=== PATIENT | female | born 1930 | race Caucasian/White ===

== ENCOUNTER 2016-07-03 15:02 | Inpatient (IN) | payer MEDICARE, BC ==
[2016-07-03] MEDS ORDERED: LEVALBUTEROL NEB 1.25 MG/3 ML AMP INHALATION STA (15:29)
--- NOTE | 2016-07-03 15:33 | ED ---
SOB HPI - General Chief Complaint: Shortness of Breath Stated Complaint: SOB Time Seen by Provider: 07/03/16 15:18 Source: patient, family, RN notes reviewed Mode of arrival: wheelchair - History of Present Illness Initial Comments: This is a 86-year-old female who had the onset 5 days ago of shortness of breath which is getting worse she's had associated cough and some rhinorrhea right-sided sharp chest pain. She does get exertional dyspnea. She was seen by her doctor 2 days ago. She was again seen today by her doctor and x-ray had been performed with the results are unknown. Patient was sent over here for evaluation to rule out pneumonia. She states she was given an updraft at the office did make her jittery but did help her breathing somewhat. MD Complaint: shortness of breath, cough - Related Data Home Medications Medication Instructions Recorded Confirmed Albuterol Sulfate [Proair 1 puff INHALATION RT-Q4H PRN MDD 07/03/16 07/03/16 Respiclick] NEVER STARTED Atorvastatin [Lipitor] 10 mg PO DAILY 07/03/16 07/03/16 Azithromycin [Zithromax Z-pack] See Taper PO DAILY 07/03/16 07/03/16 Calcium Carbonate/Vitamin D3 1 tab PO AC-LUNCH 07/03/16 07/03/16 [Calcium 600-Vit D3 200 Tablet] Levothyroxine Sodium [Synthroid] 100 mcg PO DAILY 07/03/16 07/03/16 Mirabegron [Myrbetriq] 25 mg PO DAILY 07/03/16 07/03/16 Naproxen Sodium [Aleve] 220 mg PO Q12H PRN 07/03/16 07/03/16 amLODIPine [Norvasc] 5 mg PO DAILY 07/03/16 07/03/16 methylPREDNISolone [Medrol Dose See Taper PO DAILY 07/03/16 07/03/16 Pack] Allergies Allergy/AdvReac Type Severity Reaction Status Date / Time cortisone Allergy Unknown Verified 07/03/16 16:06 Childhood Iodinated Contrast Media - Allergy Unknown Verified 07/03/16 16:06 Oral and iodine Allergy Unknown Verified 07/03/16 16:06 Review of Systems ROS Statement: Those systems with pertinent positive or pertinent negative responses have been documented in the HPI. ROS Other: All systems not noted in ROS Statement are negative. General Exam - General Exam Comments Initial Comments: This is a well-developed well-nourished awake alert oriented 3 female General appearance: alert, anxious Head exam: Present: atraumatic, normocephalic, normal inspection Eye exam: Present: normal appearance, PERRL, EOMI. Absent: scleral icterus, conjunctival injection, periorbital swelling ENT exam: Present: mucous membranes dry Neck exam: Present: normal inspection. Absent: tenderness, meningismus, lymphadenopathy Respiratory exam: Present: wheezes, decreased breath sounds Cardiovascular Exam: Present: normal rhythm, tachycardia GI/Abdominal exam: Present: soft, normal bowel sounds. Absent: distended, tenderness, guarding, rebound, rigid Extremities exam: Present: normal inspection, full ROM, normal capillary refill. Absent: tenderness, pedal edema, joint swelling, calf tenderness Back exam: Present: normal inspection Neurological exam: Present: alert, oriented X3, CN II-XII intact Psychiatric exam: Present: normal affect, normal mood Skin exam: Present: warm, dry, intact, normal color. Absent: rash Course Vital Signs 07/03/16 07/03/16 15:33 15:38 Temperature 98.1 F Pulse Rate 88 98 Respiratory 18 Rate Blood Pressure 156/75 O2 Sat by Pulse 99 Oximetry - Reevaluation(s) Reevaluation #1: 07/03/16 16:49 The patient did get relief of sour dyspnea with Xopenex without the side effects. Medical Decision Making - Medical Decision Making I did discuss findings with the patient family patient will be admitted for inpatient treatment - Lab Data Result diagrams: 07/03/16 15:30 07/03/16 15:30 Lab Results 07/03/16 07/03/16 07/03/16 Range/Units 15:30 15:30 15:30 WBC 20.0 H (3.8-10.6) k/uL RBC 4.75 (3.80-5.40) m/uL Hgb 13.8 (11.4-16.0) gm/dL Hct 42.4 (34.0-46.0) % MCV 89.2 (80.0-100.0) fL MCH 29.1 (25.0-35.0) pg MCHC 32.7 (31.0-37.0) g/dL RDW 14.2 (11.5-15.5) % Plt Count 425 (150-450) k/uL Neutrophils % 91 % Lymphocytes % 5 % Monocytes % 3 % Eosinophils % 0 % Basophils % 0 % Neutrophils # 18.3 H (1.3-7.7) k/uL Lymphocytes # 0.9 L (1.0-4.8) k/uL Monocytes # 0.6 (0-1.0) k/uL Eosinophils # 0.0 (0-0.7) k/uL Basophils # 0.0 (0-0.2) k/uL PT (9.0-12.0) sec INR (<1.1) APTT (22.0-30.0) sec Sodium 142 (137-145) mmol/L Potassium 3.8 (3.5-5.1) mmol/L Chloride 102 (98-107) mmol/L Carbon Dioxide 24 (22-30) mmol/L Anion Gap 16 mmol/L BUN 30 H (7-17) mg/dL Creatinine 0.75 (0.52-1.04) mg/dL Est GFR (MDRD) Af Amer >60 (>60 ml/min/1.73 sqM) Est GFR (MDRD) Non-Af >60 (>60 ml/min/1.73 sqM) Glucose 101 H (74-99) mg/dL Calcium 9.0 (8.4-10.2) mg/dL Magnesium 2.0 (1.6-2.3) mg/dL Total Bilirubin 1.8 H (0.2-1.3) mg/dL AST 44 H (14-36) U/L ALT 25 (9-52) U/L Alkaline Phosphatase 201 H (38-126) U/L Total Creatine Kinase 38 (30-135) U/L CK-MB (CK-2) 1.0 (0.0-2.4) ng/mL CK-MB (CK-2) Rel Index 2.6 Troponin I <0.012 (0.000-0.034) ng/mL NT-Pro-B Natriuret Pep pg/mL Total Protein 6.7 (6.3-8.2) g/dL Albumin 3.3 L (3.5-5.0) g/dL Influenza Type A RNA (Not Detectd) Influenza Type B (PCR) (Not Detectd) 07/03/16 07/03/16 07/03/16 Range/Units 15:30 15:30 15:30 WBC (3.8-10.6) k/uL RBC (3.80-5.40) m/uL Hgb (11.4-16.0) gm/dL Hct (34.0-46.0) % MCV (80.0-100.0) fL MCH (25.0-35.0) pg MCHC (31.0-37.0) g/dL RDW (11.5-15.5) % Plt Count (150-450) k/uL Neutrophils % % Lymphocytes % % Monocytes % % Eosinophils % % Basophils % % Neutrophils # (1.3-7.7) k/uL Lymphocytes # (1.0-4.8) k/uL Monocytes # (0-1.0) k/uL Eosinophils # (0-0.7) k/uL Basophils # (0-0.2) k/uL PT 9.9 (9.0-12.0) sec INR 1.0 (<1.1) APTT 27.8 (22.0-30.0) sec Sodium (137-145) mmol/L Potassium (3.5-5.1) mmol/L Chloride (98-107) mmol/L Carbon Dioxide (22-30) mmol/L Anion Gap mmol/L BUN (7-17) mg/dL Creatinine (0.52-1.04) mg/dL Est GFR (MDRD) Af Amer (>60 ml/min/1.73 sqM) Est GFR (MDRD) Non-Af (>60 ml/min/1.73 sqM) Glucose (74-99) mg/dL Calcium (8.4-10.2) mg/dL Magnesium (1.6-2.3) mg/dL Total Bilirubin (0.2-1.3) mg/dL AST (14-36) U/L ALT (9-52) U/L Alkaline Phosphatase (38-126) U/L Total Creatine Kinase (30-135) U/L CK-MB (CK-2) (0.0-2.4) ng/mL CK-MB (CK-2) Rel Index Troponin I (0.000-0.034) ng/mL NT-Pro-B Natriuret Pep 860 pg/mL Total Protein (6.3-8.2) g/dL Albumin (3.5-5.0) g/dL Influenza Type A RNA Not Detected (Not Detectd) Influenza Type B (PCR) Not Detected (Not Detectd) - EKG Data -: EKG Interpreted by Oh EKG shows normal: sinus rhythm (Sinus rhythm rate 93 SC interval 150 to QRS duration 84 daily since QTC of 342/[address]-T wave configuration some artifact is present.) - Radiology Data Radiology results: report reviewed (X-ray shows evidence of a right lower lobe infiltrate), image reviewed Disposition Clinical Impression: Pneumonia, Bronchospasm, acute, Leukocytosis Disposition: ADMITTED IP TO THIS HOSP Condition: Stable
[2016-07-03 15:48] LABS: Basophils % (A) 0 %; CH 29.3; CHCM 32.9; Eosinophils % (A) 0 %; HCT 42.4 % (34.0-46.0); HDW 2.44; HGB 13.8 gm/dL (11.4-16.0); Luc # (Auto) 0.22; Luc % (Auto) 1; Lymphocytes # (A) 0.9 k/uL (1.0-4.8); Lymphocytes % (A) 5 %; MCH 29.1 pg (25.0-35.0); MCHC 32.7 g/dL (31.0-37.0); MCV 89.2 fL (80.0-100.0); Mean Platelet Volume 6.9; Monocytes # (A) 0.6 k/uL (0-1.0); Monocytes % (A) 3 %; Neutrophils # (A) 18.3 k/uL (1.3-7.7); Neutrophils % (A) 91 %; RBC 4.75 m/uL (3.80-5.40); RDW 14.2 % (11.5-15.5)
[2016-07-03 15:55] LABS: ALT 25 U/L (9-52); AST 44 U/L (14-36); Alkaline Phosphatase 201 U/L (38-126); Anion Gap 16 mmol/L; Blood Urea Nitrogen 30 mg/dL (7-17); Carbon Dioxide 24 mmol/L (22-30); Chloride 102 mmol/L (98-107); Glucose 101 mg/dL (74-99); Non-African American GFR(MDRD) >60 (>60 ml/min/1.73 sqM); Potassium 3.8 mmol/L (3.5-5.1); Sodium 142 mmol/L (137-145); Total Bilirubin 1.8 mg/dL (0.2-1.3); Total Protein 6.7 g/dL (6.3-8.2)
[2016-07-03 16:05] LABS: Creatine Kinase 38 U/L (30-135); Partial Thromboplastin Time 27.8 sec (22.0-30.0); Prothrombin Time 9.9 sec (9.0-12.0)
[2016-07-03 16:18] LABS: Troponin I <0.012 ng/mL (0.000-0.034)
--- NOTE | 2016-07-03 16:32 | XR ---
EXAMINATION TYPE: XR chest 2V DATE OF EXAM: 07/03/2016 4:18 PM COMPARISON: NONE HISTORY: Difficulty breathing, shortness of breath and cough TECHNIQUE: Frontal and lateral views of the chest are obtained. FINDINGS: Abnormal increased attenuation in the right middle lobe. Heart may be enlarged. There is n o pneumothorax. Prominent lung volumes suggestive of underlying COPD. Question some nodularity in the posterior pleural surface on the lateral exam. IMPRESSION: Findings may represent pneumonia, follow-up to resolution. Cannot exclude some pleural d isease. Additional findings above.
[2016-07-03] MEDS ORDERED: PIPERACILLIN-TAZOBACTAM 3.375 GM in DEXTROSE/WATER 1 50ML.BAG IVPB STA (16:47)
[2016-07-03] MEDS ORDERED: PNEUMONIA PROTOCOL UTILIZED 1 EACH MISC PO PRN (16:50)
[2016-07-03] MEDS ORDERED: LEVOFLOXACIN 750MG-D5W PMX 750 MG in DEXTROSE/WATER 1 150ML.BAG IVPB STA (16:50)
[2016-07-03] MEDS ORDERED: LEVALBUTEROL NEB 1.25 MG/3 ML AMP INHALATION PRN (16:50)
[2016-07-03] MEDS ORDERED: NAPROXEN 250 MG TAB PO PRN (16:52)
[2016-07-03] MEDS: SODIUM CHLORIDE 0.9% 1,000 ML IV SCH (17:20)
[2016-07-04] MEDS: PIPERACILLIN-TAZOBACTAM 3.375 GM in DEXTROSE/WATER 1 50ML.BAG IVPB SCH ×2 (00:32→08:20)
[2016-07-04] MEDS: LEVOTHYROXINE 100 MCG TAB PO SCH (06:30)
--- NOTE | 2016-07-04 08:07 | XR ---
EXAMINATION TYPE: XR chest 2V DATE OF EXAM: 07/04/2016 6:56 AM HISTORY: pneumonia. REFERENCE: Previous study dated 07/03/2016. FINDINGS: There is a right pleural effusion. There is right basilar airspace disease. Heart size is o bscured. IMPRESSION: NO SIGNIFICANT INTERVAL CHANGE IN THE APPEARANCE OF THE CHEST.
[2016-07-04] MEDS: ATORVASTATIN 10 MG TAB PO SCH (08:20)
[2016-07-04] MEDS: OXYBUTYNIN XL 5 MG TAB.ER.24 PO SCH (08:21)
[2016-07-04] MEDS: SODIUM CHLORIDE 0.9% 1,000 ML IV SCH ×2 (08:22→12:28)
[2016-07-04] MEDS: ALBUTEROL NEBULIZED 2.5 MG/3 ML INHALATION PRN ×2 (08:32→19:15)
[2016-07-04] MEDS ORDERED: amLODIPine 5 MG TAB PO SCH (09:00)
[2016-07-04] MEDS: DOXYCYCLINE 50 MG CAP PO SCH ×2 (12:28→20:35)
[2016-07-04] MEDS: CALCIUM CARB-VIT D 500MG-200UN 1 EACH TAB PO SCH (12:28)
--- NOTE | 2016-07-04 15:37 | US ---
EXAMINATION TYPE: US chest DATE OF EXAM: 07/04/2016 3:21 PM COMPARISON: NONE CLINICAL HISTORY: r/o pleural effusion. EXAM MEASUREMENTS: Right Pleural Effusion fluid pocket: 2.7 cm Right skin to fluid thickness: 3.0 cm Left Pleural Effusion fluid pocket: no fluid on left Right side marked for possible thoracentesis outside the dept. Left side not marked for possible thoracentesis outside the dept. IMPRESSIONS: 1. Tiny right pleural effusion with no sizable fluid collection on the left.
[2016-07-04] MEDS ORDERED: LEVOFLOXACIN 750 MG TAB PO SCH ×2 (17:00→21:00)
[2016-07-04] MEDS: MELATONIN 3 MG TABLET PO PRN (20:35)
--- NOTE | 2016-07-04 20:39 | HP ---
DATE OF ADMISSION: Patient is a very pleasant 86-year-old female who came in with complaints of cough with sputum production and rhinorrhea that has been going on for about a week, since last Friday, about 5 to 6 days, and patient was given azithromycin without any significant improvement in symptoms. Patient came to ER. Patient was also complaining of some pleuritic right-sided pain. Patient was found to have pneumonia in the right middle and lower lobes. Patient may have pleural effusion, too. I will obtain an ultrasound of the chest for that. Patient was started on antibiotics Zosyn and levofloxacin, which I discontinued, and patient was started on doxycycline and Rocephin by me. Patient will be on inhalational treatments as well. Patient denied any significant fevers here, although patient is on partial treatment with azithromycin. Patient denied any smoking history. Patient was also complaining of shortness of breath. Denied any orthopnea, PND. REVIEW OF SYSTEMS: CONSTITUTIONAL: No fever, no malaise, no fatigue. HEENT: No recent visual problems or hearing problems. Denied any sore throat. CARDIOVASCULAR: No chest pain, orthopnea, PND, no palpitations, no syncope. PULMONARY: As described in HPI. GASTROINTESTINAL: No diarrhea, no nausea, no vomiting, no abdominal pain. Normoactive bowel sounds. NEUROLOGICAL: No headaches, no weakness, no numbness. HEMATOLOGICAL: Denies any bleeding or petechiae. GENITOURINARY: Denies any burning micturition, frequency, or urgency. MUSCULOSKELETAL/RHEUMATOLOGICAL: Denies any joint pain, swelling, or any muscle pain. ENDOCRINE: Denies any polyuria or polydipsia. The rest of the 14 point review of systems is negative. Home medications include: 1. Albuterol. 2. Atorvastatin. 3. Azithromycin. 4. Calcium carbonate. 5. Levothyroxine. 6. Myrbetriq. 7. Naproxen. 8. Amlodipine. 9. Methylprednisolone. 10. Medrol Dosepak. ALLERGIES: 1. CORTISONE. 2. IODINATED CONTRAST. Past medical history is significant for: 1. Hyperlipidemia. 2. Hypertension. 3. Hypothyroidism. 4. Adenoidectomy. 5. Hysterectomy. 6. Appendectomy. 7. Joint replacement surgery. 8. Tonsillectomy. SOCIAL HISTORY: Denied any smoking, alcohol abuse or any drug abuse. FAMILY HISTORY: Mother in her 70s and had a fall at that time and had a head injury at that time without any significant medical problems. PHYSICAL EXAMINATION: VITAL SIGNS: Temperature 97.0 pulse of 82, respiratory rate of 19. Blood pressure is 114/65. Saturating at 95% on 2 L of oxygen by nasal cannula. GENERAL: Alert and oriented x3. Thin built female. HEENT: Pupils are round and equally reacting to light. EOMI. No scleral icterus. No conjunctival pallor. Normocephalic, atraumatic. No pharyngeal erythema. No thyromegaly. CARDIOVASCULAR: S1 and S2 present. No murmurs, rubs, or gallops. PULMONARY: Fairly good air entry into bilateral lung cassidy. Crackles in the left posterior lung cassidy along with bronchophony, egophony, and there is dullness in the left lower lung cassidy. ABDOMEN: Soft, nontender, nondistended, normoactive bowel sounds. No palpable organomegaly. MUSCULOSKELETAL: No joint swelling or deformity. EXTREMITIES: No cyanosis, clubbing, or pedal edema. NEUROLOGICAL: Gross neurological examination did not reveal any focal deficits. SKIN: No rashes. LABORATORY DATA: CBC, CMP are abnormal for elevated WBC count of 20,000 and total bilirubin of 1.8, AST of 44. Chest x-ray as mentioned above. ASSESSMENT AND PLAN: 1. Sepsis secondary to left middle or lower lobe pneumonia, probably pneumococcal in origin. Patient appears to have parapneumonic effusion as well after an ultrasound of the chest. Patient is on above-mentioned antibiotics and inhalational treatments. 2. Hypothyroidism. 3. Hyperlipidemia. 4. Hypertension. Regarding hypertension, patient's blood pressure because of the concerns of sepsis, I will hold off on amlodipine. Patient is on 100 mL of IV normal saline. PLAN: As mentioned in the interval history and assessment. For her chronic medical problems, will continue her home medications except for amlodipine, as mentioned above. Her primary care physician is Dr. Khloe Rubin.
[2016-07-04] MEDS: HEPARIN SODIUM,PORCINE 5,000 UNIT/ML 1 ML VIAL SQ SCH (21:45)
[2016-07-05] MEDS: SODIUM CHLORIDE 0.9% 1,000 ML IV SCH ×3 (00:05→17:36)
[2016-07-05] MEDS: LEVOTHYROXINE 100 MCG TAB PO SCH (06:25)
[2016-07-05] MEDS: ALBUTEROL NEBULIZED 2.5 MG/3 ML INHALATION PRN ×2 (08:06→15:01)
[2016-07-05] MEDS: DOXYCYCLINE 50 MG CAP PO SCH ×2 (08:56→20:54)
[2016-07-05] MEDS: ATORVASTATIN 10 MG TAB PO SCH (08:56)
[2016-07-05] MEDS: HEPARIN SODIUM,PORCINE 5,000 UNIT/ML 1 ML VIAL SQ SCH ×2 (08:56→20:54)
[2016-07-05] MEDS: OXYBUTYNIN XL 5 MG TAB.ER.24 PO SCH (08:56)
[2016-07-05] MEDS: CALCIUM CARB-VIT D 500MG-200UN 1 EACH TAB PO SCH (12:52)
[2016-07-05 13:10] VITALS: BMI 25.9
[2016-07-05] MEDS: MELATONIN 3 MG TABLET PO PRN (20:54)
[2016-07-06] MEDS: SODIUM CHLORIDE 0.9% 1,000 ML IV SCH (05:56)
[2016-07-06] MEDS: LEVOTHYROXINE 100 MCG TAB PO SCH (06:16)
[2016-07-06 07:28] VITALS: BP 120/74; PULSE 65; RESP 16; TEMP 97.4
[2016-07-06 08:18] LABS: CH 28.8; CHCM 32.3; HCT 38.9 % (34.0-46.0); HDW 2.65; HGB 12.7 gm/dL (11.4-16.0); MCH 29.2 pg (25.0-35.0); MCHC 32.6 g/dL (31.0-37.0); MCV 89.7 fL (80.0-100.0); Mean Platelet Volume 6.9; RBC 4.34 m/uL (3.80-5.40); RDW 14.5 % (11.5-15.5); WBC 10.5 k/uL (3.8-10.6)
[2016-07-06 08:19] LABS: Anion Gap 10 mmol/L; Blood Urea Nitrogen 10 mg/dL (7-17); Calcium 8.5 mg/dL (8.4-10.2); Carbon Dioxide 23 mmol/L (22-30); Chloride 110 mmol/L (98-107); Glucose 75 mg/dL (74-99); Non-African American GFR(MDRD) >60 (>60 ml/min/1.73 sqM); Potassium 3.8 mmol/L (3.5-5.1); Sodium 143 mmol/L (137-145)
[2016-07-06] MEDS: OXYBUTYNIN XL 5 MG TAB.ER.24 PO SCH (08:34)
[2016-07-06] MEDS: DOXYCYCLINE 50 MG CAP PO SCH (08:34)
[2016-07-06] MEDS: ATORVASTATIN 10 MG TAB PO SCH (08:35)
[2016-07-06] MEDS: HEPARIN SODIUM,PORCINE 5,000 UNIT/ML 1 ML VIAL SQ SCH (08:35)
[2016-07-06] MEDS: CALCIUM CARB-VIT D 500MG-200UN 1 EACH TAB PO SCH (12:22)
--- NOTE | 2016-07-06 20:50 | PN ---
DATE OF SERVICE: July 05, 2016 The patient is an 86-year-old admitted with pneumonia. Patient has minimal improvement, but will need to stay one more day. Patient still feeling quite still bad and still a bit hypoxic. REVIEW OF SYSTEMS: CONSTITUTIONAL: As described in HPI. CARDIOVASCULAR: No chest pain, no orthopnea, no PND, no palpitations. PULMONARY: As described in HPI. GASTROINTESTINAL: No diarrhea, nausea or vomiting. No abdominal pain. Normoactive bowel sounds. NEUROLOGIC: No headaches, no weakness, no numbness. Medications were reviewed. PHYSICAL EXAMINATION: VITAL SIGNS: Temperature 97.4, pulse of 65, respiratory rate 16, blood pressure is 120/74, saturating at 94% on 2L of O2 by nasal cannula. GENERAL: The patient is alert and oriented x3, not in any acute distress. Well developed, well nourished. HEENT: Pupils are round and equally reacting to light. EOMI. No scleral icterus. No conjunctival pallor. Normocephalic, atraumatic. No pharyngeal erythema. No thyromegaly. CARDIOVASCULAR: S1 and S2 present. No murmurs, rubs, or gallops. PULMONARY: No significant change compared to yesterday. ABDOMEN: Soft, nontender, nondistended, normoactive bowel sounds. No palpable organomegaly. MUSCULOSKELETAL: No joint swelling or deformity. EXTREMITIES: No cyanosis, clubbing, or pedal edema. NEUROLOGICAL: Gross neurological examination did not reveal any focal deficits. SKIN: No rashes. LABORATORY DATA: Laboratory data available. ASSESSMENT AND PLAN: 1. Sepsis secondary to left middle lobe and lower lobe pneumonia, probably pneumococcal in origin. Patient has sputum cultures that are still pending. Blood cultures are negative. Patient has mild parapneumonic effusion. 2. Hypothyroidism. 3. Hyperlipidemia. 4. Hypertension. PLAN: Continue with antibiotics. Continue with inhalational treatment. Possibility of discharge tomorrow.
--- NOTE | 2016-07-07 08:23 | DS ---
DATE OF ADMISSION: 07/03/2016 DATE OF DISCHARGE: 07/06/2016 The patient is an 86-year-old admitted with right lower lobe and right middle lobe pneumonia. Patient has extensive pneumonia and sepsis secondary to that. Patient has significant improvement on antibiotics and patient is being discharged on Ceftin and doxycycline and patient is clinically doing well. Significant improvement in her respiratory status and sepsis. The patient was seen and examined on the day of discharge. Vital signs stable. PHYSICAL EXAMINATION: GENERAL: The patient is alert and oriented x3, not in any acute distress. Well developed, well nourished. HEENT: Pupils are round and equally reacting to light. EOMI. No scleral icterus. No conjunctival pallor. Normocephalic, atraumatic. No pharyngeal erythema. No thyromegaly. CARDIOVASCULAR: S1 and S2 present. No murmurs, rubs, or gallops. PULMONARY: Posteriorly the patient still has bronchophony and egophony. ABDOMEN: Soft, nontender, nondistended, normoactive bowel sounds. No palpable organomegaly. MUSCULOSKELETAL: No joint swelling or deformity. EXTREMITIES: No cyanosis, clubbing, or pedal edema. NEUROLOGICAL: Gross neurological examination did not reveal any focal deficits. SKIN: No rashes. LABORATORY DATA: WBC count improved to 10,000. ASSESSMENT AND PLAN: 1. Sepsis secondary to left middle lobe and lower lobe pneumonia and acute hypoxic respiratory secondary to pneumonia. 2. Hypothyroidism. 3. Hyperlipidemia. 4. Hypertension. DISCHARGE MEDICATIONS: Please refer to my depart summary. The patient will follow-up with Dr. Khloe Rubin in one week. Activity as tolerated. Cardiac diet. Spent greater than 35 minutes in total discharge process.
== END 2016-07-06 14:55 | disposition home or self-care (01) | DRG 871 ==
LOC: EC 15:02 → 4MS4W 16:50
PROVIDERS: ADMIT Internal Medicine; ATTEND Internal Medicine
DX: A41.9 Sepsis, unspecified organism (principal); J18.9 Pneumonia, unspecified organism; J90 Pleural effusion, not elsewhere classified; J98.01 Acute bronchospasm; E78.5 Hyperlipidemia, unspecified; I10 Essential (primary) hypertension; E03.9 Hypothyroidism, unspecified; Z79.899 Other long term (current) drug therapy; Z90.710 Acquired absence of both cervix and uterus
CPT/HCPCS: 36415; 71020; 76604; 80048; 80053; 82550; 82553; 83735; 83880; 84484; 85025; 85027; 85610; 85730; 87040; 87502; 93005; 94640; 94760; 99285

== ENCOUNTER 2019-07-24 19:07 | Emergency (ER) | payer MEDICARE, BC ==
[2019-07-24] MEDS ORDERED: ACET/COD 300 MG/30 MG STARTER PACK 6 TAB BTL PO STA (19:29)
--- NOTE | 2019-07-24 19:41 | ED ---
Fall HPI - General Source: patient Mode of arrival: wheelchair <Zhanna Taylor - Last Filed: 07/24/19 23:41> <Herson Winslowah Cheryl - Last Filed: 07/26/19 23:39> - General Chief Complaint: Fall Stated Complaint: fall Time Seen by Provider: 07/24/19 19:22 - History of Present Illness Initial Comments: 89-year-old female patient presents to the emergency department today for evaluation after experiencing a trip and fall injury. Patient states she was taking her dog outside when she tripped and fell backwards landing on her buttocks. States that she did put her hands out behind her to catch herself and landed on her wrist and hands as well. Patient denies hitting her head or losing consciousness. Denies any neck pain. States she is having pain around her "tailbone". States she is having pain to her bilateral hands, fingers, and wrist. Denies taking any medication for her symptoms. Denies any other injuries. Patient denies any headache, chest pain, shortness of breath, dizziness, weakness, abdominal pain, nausea, vomiting, or difficulties with bowel movements or urination. (Zhanna Taylor) - Related Data Home Medications Medication Instructions Recorded Confirmed Atorvastatin [Lipitor] 10 mg PO DAILY 07/03/16 07/03/16 Calcium Carbonate/Vitamin D3 1 tab PO AC-LUNCH 07/03/16 07/03/16 [Calcium 600-Vit D3 200 Tablet] Levothyroxine Sodium [Synthroid] 100 mcg PO DAILY 07/03/16 07/03/16 Mirabegron [Myrbetriq] 25 mg PO DAILY 07/03/16 07/03/16 Naproxen Sodium [Aleve] 220 mg PO Q12H PRN 07/03/16 07/03/16 methylPREDNISolone [Medrol Dose See Taper PO DAILY 07/03/16 07/03/16 Pack] Previous Rx's Medication Instructions Recorded Albuterol Inhaler (Bulk) [Ventolin 1 - 2 puff INHALATION Q6HR PRN #1 07/06/16 Hfa Inhaler (Bulk)] inhaler Cefuroxime Axetil [Ceftin] 500 mg PO BID #14 tab 07/06/16 Doxycycline [Vibramycin] 100 mg PO BID #10 cap 07/06/16 Allergies Allergy/AdvReac Type Severity Reaction Status Date / Time cortisone Allergy Unknown Verified 07/24/19 19:18 Childhood Iodinated Contrast Media Allergy Unknown Verified 07/24/19 19:18 [Iodinated Contrast Media - Oral and] iodine Allergy Unknown Verified 07/24/19 19:18 Review of Systems ROS Other: All systems not noted in ROS Statement are negative. <Zhanna Taylor - Last Filed: 07/24/19 23:41> ROS Other: All systems not noted in ROS Statement are negative. <Lillian Winslow - Last Filed: 07/26/19 23:39> ROS Statement: Those systems with pertinent positive or pertinent negative responses have been documented in the HPI. Past Medical History Past Medical History: Hyperlipidemia, Hypertension, Thyroid Disorder Additional Past Medical History / Comment(s): LEAKAGE OF URINE WEARS POISE PADS, COLITIS FEW YEARS AGO UNDER CONTROL NOW, OSTEOPOROSIS History of Any Multi-Drug Resistant Organisms: None Reported Past Surgical History: Adenoidectomy, Appendectomy, Hysterectomy, Joint Replacement, Tonsillectomy Additional Past Surgical History / Comment(s): SILVIA KNEE REPLACMENTS, PARTIAL HYSTERECTOMY THEN 2ND SX TO REMOVE THE REST.SILVIA CATARACTS. Past Anesthesia/Blood Transfusion Reactions: Previous Problems w/ Anesthesia, Motion Sickness Additional Past Anesthesia/Blood Transfusion Reaction / Comment(s): DIFF WAKING UP AFTER AA Past Psychological History: No Psychological Hx Reported Smoking Status: Never smoker Past Alcohol Use History: None Reported Past Drug Use History: None Reported - Past Family History Mother Additional Family Medical History / Comment(s): MOM IN HER 70'S D/T COMPLICATIONS FROM FALL(HEAD INJURY) Father Additional Family Medical History / Comment(s): AGE 51 ONLY HAD ONE KIDNEY ONE WAS REMOVED WHEN HE WAS A CHILD NOT SURE WHY. <Zhanna Taylor - Last Filed: 07/24/19 23:41> General Exam Limitations: no limitations General appearance: alert, in no apparent distress, other (This is a well- developed, well-nourished adult female patient in no acute distress. Vital signs upon presentation are temperature 97.8F, pulse 79, respirations 18, blood pressure 164/76, pulse ox 99% on room air.) Eye exam: Present: normal appearance, PERRL, EOMI. Absent: scleral icterus, conjunctival injection, periorbital swelling ENT exam: Present: normal exam, normal oropharynx, mucous membranes moist Neck exam: Present: normal inspection, other (Nontender, no step-off, no deformity to firm midline palpation of the posterior cervical spine. Full range of motion without pain or limitation.). Absent: tenderness, meningismus, full ROM, lymphadenopathy Respiratory exam: Present: normal lung sounds bilaterally. Absent: respiratory distress, wheezes, rales, rhonchi, stridor Cardiovascular Exam: Present: regular rate, normal rhythm, normal heart sounds. Absent: systolic murmur, diastolic murmur, rubs, gallop, clicks GI/Abdominal exam: Present: soft, normal bowel sounds. Absent: distended, tenderness, guarding, rebound, rigid Extremities exam: Present: full ROM, normal capillary refill, other (There is soft tissue swelling and ecchymosis noted to the bilateral wrist dorsally. Skin is otherwise pink, warm, dry. Cap refills less than 3 seconds. Radial pulses 2+ and equal bilaterally.). Absent: normal inspection, tenderness, pedal edema, joint swelling, calf tenderness Back exam: Present: normal inspection, vertebral tenderness (Sacral and coccyx tenderness.), other (No bony step-off or deformity noted to palpation of the thoracic and lumbar spines) Neurological exam: Present: alert, oriented X3, CN II-XII intact Psychiatric exam: Present: normal affect, normal mood Skin exam: Present: warm, dry, intact, normal color. Absent: rash <Zhanna Taylor - Last Filed: 07/24/19 23:41> Course Vital Signs 07/24/19 07/24/19 19:16 21:30 Temperature 97.8 F 97.9 F Pulse Rate 79 86 Respiratory 18 16 Rate Blood Pressure 164/76 138/75 O2 Sat by Pulse 99 97 Oximetry Procedures - Orthopedic Splinting/Casting Injury #1 Side: right Upper Extremity Injury Location: long arm Upper Extremity Immobilizer: sugar tong splint, Alan wrap <Zhanna Taylor - Last Filed: 07/24/19 23:41> - Orthopedic Splinting/Casting Injury #1 Additional Comments: Padded with web roll. Neurovascular status intact after splint application. Skin to the fingers is pink, warm, dry. Cap refills less than 3 seconds. Radial pulses 2+ and equal bilaterally. (Zhanna Taylor) Medical Decision Making - Radiology Data Radiology results: report reviewed, image reviewed <Zhanna Taylor - Last Filed: 07/24/19 23:41> <Lillian Winslow - Last Filed: 07/26/19 23:39> - Medical Decision Making 89-year-old female patient presented to the emergency department today for evaluation of bilateral wrist and hand pain as well as sacral pain after experiencing a fall. Physical examination did reveal bilateral dorsal wrist swelling and ecchymosis. Neurovascular status is intact. X-rays reviewed lumbosacral spine is negative. Bilateral wrist x-rays did reveal distal radial and ulnar styloid fractures. I did discuss the case with [facility]. He recommended bilateral sugar tong splints. She'll be discharged to follow-up with the orthopedics as soon as possible. She is instructed to call on Friday for an appointment. She is instructed to take Tylenol Motrin for pain control. Return parameters discussed in detail. She verbalizes understanding and agrees with this plan (Zhanna Taylor) I was available for consultation in the emergency department. The history and physical exam were done by the midlevel provider. I was consulted for this patients care. I reviewed the case with the midlevel provider and based on their presentation of the patient, I agree with the assessment, medical decision making and plan of care as documented. Chart was dictated using [employer] dictation software. Attempts were made to correct any dictation errors however some typographical errors may persist. Patient was seen during a national state of emergency due to the Covid-19 pandemic. (Lillian Winslow) - Radiology Data 4 views of the lumbosacral spine are obtained. Report was reviewed in its entirety. Impression by Dr. Nelson shows no acute abdomen abnormality of the lumbar spine. The L4 to 5 and L5-S1. No fracture 4 views of each wrist are obtained. Report was reviewed in its entirety. Impression by Dr. Nelson shows bilateral acute transverse fractures of the distal radius. Bilateral nondisplaced ulnar styloid process chip fractures. 3 views of each hand are obtained. Report was reviewed in its entirety. Impression by Dr. Nelson shows osteopenia. Mild osteoarthritic changes. Bilateral acute ulnar styloid process chip fractures. Bilateral distal radius fractures are suspected. (Zhanna Taylor) Disposition Is patient prescribed a controlled substance at d/c from ED?: No Time of Disposition: 20:51 <Zhanna Taylor - Last Filed: 07/24/19 23:41> <Lillian Winslow - Last Filed: 07/26/19 23:39> Clinical Impression: Distal radius fracture, left, Distal radius fracture, right, Fracture of right ulnar styloid, Dislocation of left ulnar styloid Disposition: HOME SELF-CARE Condition: Good Instructions (If sedation given, give patient instructions): Wrist Fracture in Adults (ED), Acute Low Back Pain (ED), Contusion in Adults (ED) Additional Instructions: Take Tylenol and Motrin for pain control. Follow-up with integration specialist for further evaluation as soon as possible. Call on Friday for an appointment. Return to the emergency department immediately for any new, worsening, or concerning symptoms. Referrals: Khloe Rubin MD [Primary Care Provider] - 1-2 days Nazario Melo DO [Doctor of Osteopathic Medicine] - 1-2 days
--- NOTE | 2019-07-24 20:10 | XR ---
EXAMINATION TYPE: XR hand complete bilateral DATE OF EXAM: 07/24/2019 COMPARISON: NONE HISTORY: Pain TECHNIQUE: 3 views each hand FINDINGS: The metacarpals are intact. There is some narrowing of the IP joints. There is narrowing an d spurring at the first carpometacarpal joints. There is no subluxation. There is nondisplaced fractu re of the ulnar styloid process of the left hand. There is similar fracture of the right hand. IMPRESSION: Osteopenia. Mild osteoarthritic changes. Bilateral acute ulnar styloid process chip fractures. Bilateral distal radius fractures are suspected .
--- NOTE | 2019-07-24 20:12 | XR ---
EXAMINATION TYPE: XR wrist complete BILATERAL DATE OF EXAM: 07/24/2019 COMPARISON: NONE HISTORY: Pain TECHNIQUE: 4 views each wrist FINDINGS: There are bilateral ulnar styloid process chip fractures. There is slightly impacted transv erse fracture of the distal right radial metaphysis. There is evidence of a nondisplaced transverse f racture of the posterior cortex of the distal left radius. There is no dislocation. The carpal bones appear intact. IMPRESSION: Bilateral acute transverse fractures of the distal radius. Bilateral nondisplaced ulnar s tyloid process chip fractures.
--- NOTE | 2019-07-24 20:13 | XR ---
EXAMINATION TYPE: XR lumbosacral spine min 4V DATE OF EXAM: 07/24/2019 COMPARISON: NONE HISTORY: Back pain TECHNIQUE: 5 views FINDINGS: There is osteopenia. Vertebra have fairly normal alignment. I see no compression fracture. Abdominal aorta is atheromatous. Sacroiliac joints appear intact. There is right upper quadrant calci fication that could be 1.5 cm calcified gallstone. IMPRESSION: No acute abnormality of the lumbar spine. Disc space narrowing at L4-5 and L5-S1. No frac ture.
[2019-07-24 21:32] VITALS: BP 138/75; PULSE 86; RESP 16; TEMP 97.9
== END 2019-07-24 21:33 | disposition home or self-care (01) ==
LOC: EC 19:07
DX: S52.515A Nondisplaced fracture of left radial styloid process, initial encounter for closed fracture (principal); S52.511A Displaced fracture of right radial styloid process, initial encounter for closed fracture; I10 Essential (primary) hypertension; E78.5 Hyperlipidemia, unspecified; E07.9 Disorder of thyroid, unspecified; Z79.890 Hormone replacement therapy; Z79.899 Other long term (current) drug therapy; Z88.8 Allergy status to other drugs, medicaments and biological substances; Z91.048 Other nonmedicinal substance allergy status; Z91.041 Radiographic dye allergy status; W01.0XXA Fall on same level from slipping, tripping and stumbling without subsequent striking against object, initial encounter
CPT/HCPCS: 29105; 72110; 99283

== ENCOUNTER → 2019-10-13 | Outpatient (CLI) | payer MEDICARE ==
[2019-10-13 15:49] LABS: Basophils % (A) 0 %; Eosinophils # (A) 0.1 k/uL (0-0.7); Eosinophils % (A) 1 %; HCT 43.5 % (34.0-46.0); HGB 13.7 gm/dL (11.4-16.0); Lymphocytes # (A) 2.9 k/uL (1.0-4.8); Lymphocytes % (A) 34 %; MCH 28.9 pg (25.0-35.0); MCHC 31.5 g/dL (31.0-37.0); MCV 91.7 fL (80.0-100.0); Mean Platelet Volume 6.9; Monocytes # (A) 0.5 k/uL (0-1.0); Monocytes % (A) 6 %; Neutrophils # (A) 4.7 k/uL (1.3-7.7); Neutrophils % (A) 56 %; Platelet Count 275 k/uL (150-450); RBC 4.75 m/uL (3.80-5.40); RDW 14.3 % (11.5-15.5); WBC 8.4 k/uL (3.8-10.6)
[2019-10-13 15:58] LABS: Potassium 4.1 mmol/L (3.5-5.1)
== END | disposition home or self-care (01) ==
LOC: LABPAT 14:43
PROVIDERS: ATTEND Orthopaedic Surgery
DX: Z01.818 Encounter for other preprocedural examination (principal); G56.01 Carpal tunnel syndrome, right upper limb
CPT/HCPCS: 36415; 80051; 85025

== ENCOUNTER → 2019-10-21 | Day surgery (SDC) | payer MEDICARE ==
[2019-10-19 15:18] VITALS: BMI 22.1
--- NOTE | 2019-10-20 15:05 | HP ---
HISTORY AND PHYSICAL DATE OF SURGERY: 10/21/2019 Fatemeh Cole is an 89-year-old patient seen with right carpal tunnel syndrome. We discussed options. She elected to proceed with decompression of median nerve. Consent was obtained. PAST MEDICAL HISTORY: Hypertension, hypothyroidism. PAST SURGICAL HISTORY: Bilateral total knee arthroplasty, ORIF, distal radius fracture. DAILY MEDICATIONS: Amlodipine, Synthroid, Zetia. ALLERGIES: CORTISONE SOCIAL HISTORY: She denies tobacco use. PHYSICAL EVALUATION OF THE RIGHT WRIST: She has a well-healed proximal incisions consistent with the ORIF of her distal radius fracture which was healed. There is a positive carpal compression and carpal Tinel's causing numbness and tingling throughout the median nerve distribution. She has decreased light touch throughout the median distribution. There is a good radial pulse is present. Good perfusion distally. Radiographs revealed a well-healed fracture of the distal radius and osteoarthritic changes. IMPRESSION: Right carpal tunnel syndrome, hypertension, hypothyroidism. PLAN: Decompression right median nerve. MMODL / IJN: [id number] /
[~2019-10-21] MED LIST: BUPIVACAINE (PF) 0.25% 30 ML VIAL SQ ONE; LACTATED RINGERS 1,000 ML IV SCH; LIDOCAINE 1% (10MG/ML) FOR IV START INTRADERMA ONE; PROPOFOL 10 MG/ML 20 ML VIAL IV ONE; fentaNYL (PF) 50 MCG/ML 2 ML AMP ONE
[2019-10-21 12:45] VITALS: RESP 16; TEMP 97.9
--- NOTE | 2019-10-21 14:20 | P.OP ---
Date of Procedure: 10/21/19 Preoperative Diagnosis: Right carpal tunnel syndrome Postoperative Diagnosis: Right carpal tunnel syndrome Procedure(s) Performed: Decompression right median nerve Anesthesia: MAC, local Surgeon: Nazario Melo Estimated Blood Loss (ml): 0 Pathology: none sent Condition: stable Disposition: PACU Indications for Procedure: 89-year-old patient seen with symptomatic right carpal tunnel syndrome. After having treatment options discussed, she elected to proceed with decompression right median nerve. Operative Findings: see description of procedure Description of Procedure: The patient was taken to the operative suite. The patient received preoperative IV antibiotics. A well-padded tourniquet was placed on the proximal right upper extremity. The right upper extremity was prepped and draped in the normal sterile orthopedic fashion. The proposed incision site was infiltrated with 10 mL quarter percent plain Marcaine. When sufficient local analgesia was noted the extremity was elevated and tourniquet insufflated to 250. I made an incision beginning in the distal volar wrist crease extending distally approximately 3 cm in line with the fourth metacarpal sharply through skin. I dissected down through the subcutaneous soft tissues and through the palmar fascia to the transverse carpal ligament. I made a small incision through the transverse carpal ligament. Having completed the release proximally and dis tally with blunt Metzenbaums. There was complete release of the transverse carpal ligament. There was good decompression of the nerve. There was good hemostasis. The wound was irrigated. The skin margins were proximal nylon suture. Sterile dressings were applied. The tourniquet was now released and immediate capillary refill noted. Patient was awakened and transferred to recovery stable condition.
[2019-10-21 14:33] VITALS: BP 146/72; PULSE 75
== END | disposition home or self-care (01) ==
LOC: OR 12:02
PROVIDERS: ATTEND Orthopaedic Surgery
DX: G56.01 Carpal tunnel syndrome, right upper limb (principal); I10 Essential (primary) hypertension; E78.5 Hyperlipidemia, unspecified; E03.9 Hypothyroidism, unspecified; Z88.8 Allergy status to other drugs, medicaments and biological substances; Z91.048 Other nonmedicinal substance allergy status; Z79.890 Hormone replacement therapy; Z79.899 Other long term (current) drug therapy; Z96.653 Presence of artificial knee joint, bilateral; Z98.890 Other specified postprocedural states
CPT/HCPCS: 64721; J0690; J3010; J2704